=== PATIENT | female | born 1965 | race Caucasian/White ===

== ENCOUNTER 2016-10-02 13:28 | Emergency (ER) | payer BC ==
--- NOTE | ~2016-10-02 | CR72 ---
[facility] RADIOLOGY TEXT RESULTS PATIENT: CELI ALFONSO LOCATION: SED : 65 UNIT #: [id number] AGE: [address]: Bj Hassan MD SEX: F ORDER DR: [id number] [place] [id number] E MR#: [id number] Acc #: [id number] NAME: CELI ALFONSO. : 1965 SEX: F STUDY DATE/TIME: 10/02/2016 13:17 UNIT: SED ROOM: STUDY DESCRIPTION: CR Chest Single View Portable Attending Physician: Bj Hassan M.D. Ordering Physician: Bj Hassan M.D. Primary Care Physician: Bethany Roman M.D. MEDICAL IMAGING REPORT This report is preliminary unless electronic signature is present. EXAM Portable chest one view DATE OF STUDY: 10/02/16 COMPARISON: 03/07/2006 HISTORY: chest pain for one day FINDINGS A single AP portable view of the chest shows both lungs to be clear. The heart is normal in size. The mediastinal contour is normal. No significant bone abnormalities are seen. IMPRESSION Normal portable chest. Dictated by... Steffen Lee M.D. THIS IS AN ELECTRONICALLY VERIFIED REPORT Steffen Lee M.D. at 10/03/2016 3:58 PM TEV/kristine TD: 10/02/2016 14:19 JOB #: [id number] MEDICAL IMAGING REPORT [facility] RADIOLOGY TEXT RESULTS PATIENT: CELI ALFONSO LOCATION: SED : 65 UNIT #: [id number] AGE: [address]: jB Hassan MD SEX: F ORDER DR: Page 1 of 1
--- NOTE | ~2016-10-02 | EKG ---
PATIENT: CELI ALFONSO UNIT #: [id number] Ventricular Rate: 76 BPM Atrial Rate: 76 BPM P-R Interval: 152 ms QRS Duration: 58 ms Q-T Interval: 388 ms QTC Calculation(Bezet): 436 ms P [place]: 99 degrees Calculated R [place]: 56 degrees Calculated T [place]: 49 degrees Diagnosis Line: Sinus rhythm with Premature atrial complexes Diagnosis Line: Poor R wave progression questionable lead position Diagnosis Line: or body habitus Otherwise normal ECG Baseline Diagnosis Line: wander Low voltage QRS Diagnosis Line: No previous ECGs available Diagnosis Line: Reconfirmed by EVI GARCIA MD ([id number]) on Diagnosis Line: 10/12/2016 11:49:43 AM INTERPRETING MD: JOSE PALACIO
--- NOTE | ~2016-10-02 | EKG ---
PATIENT: CELI ALFONSO UNIT #: [id number] Ventricular Rate: 76 BPM Atrial Rate: 76 BPM P-R Interval: 152 ms QRS Duration: 58 ms Q-T Interval: 388 ms QTC Calculation(Bezet): 436 ms P [place]: 99 degrees Calculated R [place]: 56 degrees Calculated T [place]: 49 degrees Diagnosis Line: Sinus rhythm with Premature atrial complexes Diagnosis Line: Septal infarct , age undetermined Diagnosis Line: Abnormal ECG Diagnosis Line: No previous ECGs available Diagnosis Line: Confirmed by EVI GARCIA MD ([id number]) on 10/12/2016 Diagnosis Line: 11:49:08 AM INTERPRETING MD: JOSE PALACIO
[2016-10-02 13:17] LABS: BASOPHIL% 0.6 % (0-2.5); EOSINOPHIL% 0.4 % (0.0-7.0); HEMATOCRIT 43.4 % (35.0-45.0); HEMOGLOBIN 14.4 gm/dL (12.0-16.0); LYMPHOCYTE# 2.6 X10e3 (1.0-3.5); LYMPHOCYTE% 34.4 % (17.0-45.0); MEAN CELL VOLUME 88.3 FL (83-96); MEAN CORPUSCULAR HEMOGLOBIN 29.2 PG (28-34); MEAN CORPUSCULAR HGB CONC 33.1 g/dL (30-36); MEAN PLATELET VOLUME 7.9 FL (6.5-11.5); MONOCYTE# 0.6 X10e3 (0-1.0); MONOCYTE% 7.3 % (3.0-12.0); NEUTROPHIL# 4.3 X10e3 (1.5-7.1); NEUTROPHIL% 57.3 % (40-75); PLATELET COUNT 290 X10e3 (140-420); RED BLOOD COUNT 4.91 X10e (3.90-5.30); RED CELL DISTRIBUTION WIDTH 12.9 % (11.0-15.5); WHITE BLOOD COUNT 7.5 X10e3 (4.0-10.5)
[2016-10-02 13:18] LABS: DIFF IND NO
[2016-10-02 13:18] LABS: POC - CKMB <1.0 ng/mL (0.0-7.9); POC - TROPONIN <0.05 ng/mL (<=0.05)
[2016-10-02 13:49] LABS: BILIRUBIN, DIRECT 0.1 mg/dL (0.0-0.2); BILIRUBIN,INDIRECT 0.5 mg/dL (0.0-0.9); BILIRUBIN,TOTAL 0.6 mg/dL (0.2-2.0); BUN/CREATININE RATIO 13.33; CALCIUM SERUM 9.3 mg/dL (8.4-10.2); CREATININE SERUM 0.9 mg/dL (0.6-1.4); GLOM FILT RATE Estimated 74.1 mL/min (>60); POTASSIUM 3.8 mmol/L (3.5-5.1); PROTEIN TOTAL SERUM 7.8 g/dL (6.0-8.3)
[2016-10-02 14:56] LABS: POC - CKMB <1.0 ng/mL (0.0-7.9); POC - TROPONIN <0.05 ng/mL (<=0.05)
== END 2016-10-02 15:34 | disposition home or self-care (01) ==
LOC: SED 13:28
PROVIDERS: Emergency Medicine
DX: R07.89 Other chest pain (principal); F17.210 Nicotine dependence, cigarettes, uncomplicated; Z88.0 Allergy status to penicillin
CPT/HCPCS: 36415; 71010; 80048; 80076; 82553; 84484; 85025; 93005; 99284